=== PATIENT | male | born 1960 | race Caucasian/White ===

== ENCOUNTER 2016-11-15 23:41 | Observation (INO) | payer OTHER ==
[~2016-11-15] VITALS: Ht 170.2 cm; Wt 97.7 kg
[2016-11-16 00:15] LABS: CHLORIDE 93 mEq/L (99-109); POTASSIUM 3.9 mEq/L (3.7-5.4); SODIUM 135 mEq/L (136-147)
[2016-11-16 00:16] LABS: BASOPHIL COUNT 0.1 K/uL (0-0.1); EOSINOPHIL (%) 0.7 % (0-5); EOSINOPHIL COUNT 0.1 K/uL (0-0.3); HEMATOCRIT 39.3 % (38.0-50.0); IMMATURE GRANULOCYTE (%) 0.8 % (0.0-0.7); IMMATURE GRANULOCYTE COUNT 0.1 K/uL; INSTRUMENT ABS NEUTROPHIL CT 8.3 K/uL; LYMPHOCYTE COUNT 0.9 K/uL (1.0-2.8); MCH 27.9 PG (29.0-34.0); MCHC 32.6 G/DL (30.0-36.0); MCV 85.8 FL (86-99); MONOCYTE (%) 12.4 % (3-12); MONOCYTE COUNT 1.3 K/uL (0-0.8); NEUTROPHIL (%) 76.7 % (45-76); NEUTROPHIL COUNT 8.3 K/uL (1.8-6.4); NRBC (%) 0.8 /100 WBC (0-0); PLATELET COUNT 79 K/uL (156-360); RED BLOOD COUNT 4.58 M/uL (4.00-5.50); WHITE BLOOD COUNT 10.8 K/uL (4.1-10.2)
[2016-11-16 00:17] LABS: GLUCOSE 82 mg/dL (70-99)
[2016-11-16 00:19] LABS: ANION GAP 16 MEQ/L (2-14); TOTAL BILIRUBIN 1.9 mg/dL (0.0-1.0)
[2016-11-16 00:21] LABS: ALKALINE PHOSPHATASE 61 IU/L (3-129); GFR ESTIMATE (CALCULATED) 28 mL/min/
[2016-11-16 00:22] LABS: UREA NITROGEN (BUN) 54 mg/dL (9-23)
[2016-11-16 00:26] LABS: TROP-I INTERPRETATION INDETERMINATE; TROPONIN-I 0.42 ng/mL (0.0-0.30)
[2016-11-16] MEDS ORDERED: KEPPRA500 MG PO (01:51)
[2016-11-16] MEDS ORDERED: RANEXA500 MG PO (01:52)
[2016-11-16] MEDS ORDERED: PLAVIX75 MG PO (01:53)
[2016-11-16] MEDS ORDERED: COREG6.25 M1 PO (01:53)
[2016-11-16] MEDS ORDERED: ECOTRIN325 MG PO (01:55)
[2016-11-16] MEDS ORDERED: TRILIPIX135 MG PO (01:56)
[2016-11-16] MEDS ORDERED: MEGARED OMEGA-1 EAC2 PO (01:57)
[2016-11-16] MEDS ORDERED: HUMALOG MI100 UNIT/5 SC (01:59)
[2016-11-16] MEDS ORDERED: CRESTOR40 MG PO (02:00)
[2016-11-16] MEDS ORDERED: MIRAPEX0.5 MG PO (02:02)
[2016-11-16] MEDS ORDERED: SPIRIVA18 MCG IH (02:04)
[2016-11-16] MEDS ORDERED: ULTRAM50 MG PO (02:06)
[2016-11-16] MEDS ORDERED: VICTOZA0.6 MG/0.1 SC (02:08)
[2016-11-16] MEDS ORDERED: TRAZODONE HCL50 MG PO (02:09)
[2016-11-16] MEDS ORDERED: METOLAZONE2.5 MG PO (02:14)
[2016-11-16] MEDS ORDERED: BUMEX2 MG PO (02:17)
[2016-11-16] MEDS ORDERED: NEXIUM40 MG PO (04:25)
[2016-11-16 05:35] VITALS: BP 117/66
[2016-11-16 06:40] LABS: INTER. NORMALIZED RATIO 2.6
[2016-11-16 07:00] LABS: HDL CHOLESTEROL 10 MG/DL (Desirable>=40); LDL CHOLESTEROL 25 mg/dL (Desirable<100); NON-HDL CHOLESTEROL 47 mg/dL (Desirable<160); SERUM ETHYL ALCOHOL < 10 mg/dL; TOTAL CHOLESTEROL 57 mg/dL (Desirable<200); TRIGLYCERIDES 108 MG/DL (Normal: <150)
[2016-11-16 07:05] LABS: TROP-I INTERPRETATION INDETERMINATE; TROPONIN-I 0.47 ng/mL (0.0-0.30)
[2016-11-16 07:36] LABS: Estimated Average Glucose 209 mg/dL (70-123); HEMOGLOBIN A1c (GLYCOHEMOGLOB) 8.9 % HGB (Below 5.7)
[2016-11-16 08:27] LABS: POINT-OF-CARE METER ID UU13113831
[2016-11-16 09:02] LABS: POINT-OF-CARE METER ID UU13113700
[2016-11-16 12:28] LABS: POINT-OF-CARE METER ID UU13113700
[2016-11-16 12:42] VITALS: BP 105/59
[2016-11-16 12:44] LABS: INTER. NORMALIZED RATIO 2.5; PROTHROMBIN TIME 28.6 SEC (10.2-12.9)
[2016-11-16 12:47] LABS: PTT 29.8 SEC (25-37)
[2016-11-16 12:48] LABS: HEMATOCRIT 41.1 % (38.0-50.0); MCH 28.6 PG (29.0-34.0); MCHC 33.1 G/DL (30.0-36.0); MCV 86.5 FL (86-99); NRBC (%) 0.5 /100 WBC (0-0); RBC DIS.WIDTH-CV 18.6 % (11.8-14.6); RBC DIS.WIDTH-SD 54.3 % (39-53); RED BLOOD COUNT 4.75 M/uL (4.00-5.50); WHITE BLOOD COUNT 9.8 K/uL (4.1-10.2)
[2016-11-16 13:04] LABS: PLAT.SUFFICIENCY DECREASED; PLATELET COUNT 74 K/uL (156-360)
[2016-11-16 13:08] LABS: ALKALINE PHOSPHATASE 55 IU/L (3-129); ANION GAP 12 MEQ/L (2-14); CHLORIDE 91 MEQ/L (99-109); GFR ESTIMATE (CALCULATED) 28 mL/min/; MAGNESIUM 2.3 mg/dl (1.3-2.7); POTASSIUM 4.1 MEQ/L (3.7-5.4); SAMPLE HEMOLYSIS CHECK 0; SAMPLE ICTERIC CHECK 0; SAMPLE LIPEMIA CHECK 0; SODIUM 132 MEQ/L (136-147); TOTAL BILIRUBIN 2.4 MG/DL (0.0-1.0); UREA NITROGEN (BUN) 53 mg/dL (9-23)
[2016-11-16 13:09] LABS: GLUCOSE 118 mg/dL (70-99)
[2016-11-16 13:35] LABS: TROP-I INTERPRETATION INDETERMINATE; TROPONIN-I 0.38 ng/mL (0.0-0.30)
== END 2016-11-16 15:46 | disposition home or self-care (01) ==
LOC: EME 23:41 → EDOF 11-16 04:07 → ENRESERV 11-16 04:09 → 5WEST 11-16 05:19
PROVIDERS: Emergency Medicine; Hospitalist; Internal Medicine; Physician Assistant Medical
DX: R07.9 Chest pain, unspecified (principal); I21.4 Non-ST elevation (NSTEMI) myocardial infarction; N17.9 Acute kidney failure, unspecified; I13.0 Hypertensive heart and chronic kidney disease with heart failure and stage 1 through stage 4 chronic kidney disease, or unspecified chronic kidney disease; I50.22 Chronic systolic (congestive) heart failure; N18.4 Chronic kidney disease, stage 4 (severe); R74.0 Nonspecific elevation of levels of transaminase and lactic acid dehydrogenase [LDH]; K80.20 Calculus of gallbladder without cholecystitis without obstruction; D69.6 Thrombocytopenia, unspecified; Z91.19 Patient's noncompliance with other medical treatment and regimen; I25.5 Ischemic cardiomyopathy; I25.10 Atherosclerotic heart disease of native coronary artery without angina pectoris; Z95.810 Presence of automatic (implantable) cardiac defibrillator; E11.22 Type 2 diabetes mellitus with diabetic chronic kidney disease; E11.649 Type 2 diabetes mellitus with hypoglycemia without coma; G40.909 Epilepsy, unspecified, not intractable, without status epilepticus; E78.5 Hyperlipidemia, unspecified; J44.9 Chronic obstructive pulmonary disease, unspecified; E87.1 Hypo-osmolality and hyponatremia; I27.2 Other secondary pulmonary hypertension; E66.8 Other obesity; Z68.33 Body mass index [BMI] 33.0-33.9, adult; M19.90 Unspecified osteoarthritis, unspecified site; I42.0 Dilated cardiomyopathy; Z87.891 Personal history of nicotine dependence; Z82.49 Family history of ischemic heart disease and other diseases of the circulatory system; Z79.4 Long term (current) use of insulin; Z79.82 Long term (current) use of aspirin
CPT/HCPCS: 71020; 76705; 80053; 80061; 80306 90; 81003; 82948; 83036; 83735; 84484; 85025; 85027; 85610; 85730; 93005; 94640; 99281; 99285; G0378; G0480

== ENCOUNTER 2017-01-18 22:02 | Observation (INO) | payer OTHER ==
[~2017-01-18] VITALS: Ht 167.6 cm; Wt 98.4 kg
[~2017-01-18 22:02] MED LIST: BUMEX2 MG PO; COREG6.25 M1 PO; CRESTOR40 MG PO; ECOTRIN325 MG PO; HUMALOG MI100 UNIT/5 SC; KEPPRA500 MG PO; MEGARED OMEGA-1 EAC2 PO; METOLAZONE2.5 MG PO; MIRAPEX0.5 MG PO; NEXIUM40 MG PO; PLAVIX75 MG PO; RANEXA500 MG PO; SPIRIVA18 MCG IH; TRAZODONE HCL50 MG PO; TRILIPIX135 MG PO; ULTRAM50 MG PO; VICTOZA0.6 MG/0.1 SC
[2017-01-18 23:02] LABS: BASOPHIL COUNT 0.1 K/uL (0-0.1); EOSINOPHIL (%) 2.9 % (0-5); EOSINOPHIL COUNT 0.3 K/uL (0-0.3); HEMATOCRIT 38.1 % (38.0-50.0); IMMATURE GRANULOCYTE (%) 0.5 % (0.0-0.7); INSTRUMENT ABS NEUTROPHIL CT 6.6 K/uL; LYMPHOCYTE COUNT 0.9 K/uL (1.0-2.8); MCH 27.5 PG (29.0-34.0); MCHC 32.8 G/DL (30.0-36.0); MCV 83.9 FL (86-99); MONOCYTE (%) 10.1 % (3-12); MONOCYTE COUNT 0.9 K/uL (0-0.8); NEUTROPHIL (%) 75.4 % (45-76); NEUTROPHIL COUNT 6.6 K/uL (1.8-6.4); PLATELET COUNT 72 K/uL (156-360); RBC DIS.WIDTH-CV 17.3 % (11.8-14.6); RBC DIS.WIDTH-SD 53.1 % (39-53); RED BLOOD COUNT 4.54 M/uL (4.00-5.50); WHITE BLOOD COUNT 8.7 K/uL (4.1-10.2)
[2017-01-18 23:04] LABS: CHLORIDE 100 mEq/L (99-109); POTASSIUM 5.8 mEq/L (3.7-5.4); SODIUM 130 mEq/L (136-147)
[2017-01-18 23:06] LABS: GLUCOSE 246 mg/dL (70-99)
[2017-01-18 23:07] LABS: ANION GAP 10 MEQ/L (2-14)
[2017-01-18 23:08] LABS: TOTAL BILIRUBIN 1.1 mg/dL (0.0-1.0)
[2017-01-18 23:09] LABS: ALKALINE PHOSPHATASE 60 IU/L (3-129)
[2017-01-18 23:10] LABS: GFR ESTIMATE (CALCULATED) 24 mL/min/
[2017-01-18 23:11] LABS: UREA NITROGEN (BUN) 73 mg/dL (9-23)
[2017-01-18 23:18] LABS: TROP-I INTERPRETATION NEGATIVE; TROPONIN-I 0.13 ng/mL (0.0-0.30)
[2017-01-19 02:41] LABS: CHLORIDE 102 mEq/L (99-109); POTASSIUM 4.8 mEq/L (3.7-5.4); SODIUM 133 mEq/L (136-147)
[2017-01-19 02:43] LABS: GLUCOSE 189 mg/dL (70-99)
[2017-01-19 02:44] LABS: ANION GAP 11 MEQ/L (2-14)
[2017-01-19 02:47] LABS: GFR ESTIMATE (CALCULATED) 24 mL/min/; UREA NITROGEN (BUN) 74 mg/dL (9-23)
[2017-01-19 05:13] VITALS: BP 105/53
[2017-01-19 06:44] LABS: TROP-I INTERPRETATION NEGATIVE; TROPONIN-I 0.16 ng/mL (0.0-0.30)
[2017-01-19 07:38] VITALS: BP 100/56
[2017-01-19 09:00] LABS: POINT-OF-CARE METER ID UU14162513
[2017-01-19 10:34] LABS: C DIFF TOXIN NEGATIVE (NEGATIVE)
[2017-01-19 10:41] LABS: PROBE CHECK PASS; SPECIMEN PROCESSING CONTROL PASS
[2017-01-19 11:08] VITALS: BP 110/51
[2017-01-19 11:55] LABS: HEMATOCRIT 42.3 % (38.0-50.0); MCV 85.1 FL (86-99)
[2017-01-19 12:17] LABS: TROP-I INTERPRETATION NEGATIVE; TROPONIN-I 0.14 ng/mL (0.0-0.30)
[2017-01-19 12:37] LABS: POINT-OF-CARE METER ID UU14162513
[2017-01-19] MEDS ORDERED: CIPROFLOXACIN500 M1 PO (15:21)
[2017-01-19] MEDS ORDERED: METRONIDAZOLE500 MG PO (15:21)
[2017-01-19] MEDS ORDERED: BUMETANIDE1 MG PO (15:58)
[2017-01-19 16:26] VITALS: BP 110/52
== END 2017-01-19 17:20 | disposition home or self-care (01) ==
LOC: EME → EDBD 22:02 → EDOF 01-19 03:23 → ENRESERV 01-19 03:24 → 5WEST 01-19 04:54
PROVIDERS: Emergency Medicine; Hospitalist; Nurse Practitioner Family
DX: R07.9 Chest pain, unspecified (principal); R06.02 Shortness of breath; K57.32 Diverticulitis of large intestine without perforation or abscess without bleeding; N17.9 Acute kidney failure, unspecified; I13.0 Hypertensive heart and chronic kidney disease with heart failure and stage 1 through stage 4 chronic kidney disease, or unspecified chronic kidney disease; E11.22 Type 2 diabetes mellitus with diabetic chronic kidney disease; I50.9 Heart failure, unspecified; N18.4 Chronic kidney disease, stage 4 (severe); I25.5 Ischemic cardiomyopathy; N28.1 Cyst of kidney, acquired; E87.1 Hypo-osmolality and hyponatremia; I25.10 Atherosclerotic heart disease of native coronary artery without angina pectoris; I25.2 Old myocardial infarction; K21.9 Gastro-esophageal reflux disease without esophagitis; K74.60 Unspecified cirrhosis of liver; G40.909 Epilepsy, unspecified, not intractable, without status epilepticus; Z91.19 Patient's noncompliance with other medical treatment and regimen; D69.6 Thrombocytopenia, unspecified; E78.5 Hyperlipidemia, unspecified; Z87.891 Personal history of nicotine dependence
CPT/HCPCS: 71010; 71250; 74176; 76770; 80048; 80053; 81003; 82570; 82948; 83605; 83880; 84156; 84484; 85014; 85018; 85025; 87177; 87493; 93005; 94640; 99281; 99285; G0378; J1885; J7050; J7120